=== PATIENT | female | born 1940 | race Caucasian/White ===

== ENCOUNTER → 2018-03-25 | Outpatient (CLI) | payer MEDICARE, OTHER | END | disposition home or self-care (01) | LOC: CARD 09:16 | PROVIDERS: ATTEND Registered Nurse | DX: R94.01 Abnormal electroencephalogram [EEG] (principal); R41.3 Other amnesia; R41.0 Disorientation, unspecified | CPT/HCPCS: 95819 ==

== ENCOUNTER 2018-12-25 08:44 | Emergency (ER) | payer MEDICARE, OTHER ==
[~2018-12-25] VITALS: Ht 157.5 cm; Wt 51.5 kg
[2018-12-25 10:16] LABS: BASOPHILS # (AUTO) 0.02 x10^3/uL (0-0.1); BASOPHILS % (AUTO) 0 % (0-1); EOSINOPHILS % (AUTO) 0 % (1-7); LYMPHOCYTES # (AUTO) 0.91 x10^3/uL (1-3.4); LYMPHOCYTES % (AUTO) 13 % (22-44); MD NO; MEAN CORPUSCULAR HEMOGLOBIN 30.7 pg (27.0-34.8); MEAN CORPUSCULAR HGB CONC 32.8 g/dL (32.4-35.8); MEAN CORPUSCULAR VOLUME 93.6 fL (80-100); MONOCYTES # (AUTO) 1.15 x10^3/uL (0.2-0.8); MONOCYTES % (AUTO) 16 % (2-9); NEUTROPHILS # (AUTO) 4.91 x10^3/uL (1.8-6.8); NEUTROPHILS % (AUTO) 70 % (42-75); PLATELET COUNT 216 x10^3/uL (130-400); RED CELL DISTRIBUTION WIDTH 12.7 % (9.6-15.2)
[2018-12-25 10:27] LABS: ALANINE AMINOTRANSFERASE 23 U/L (12-78); ALBUMIN 3.6 g/dL (3.4-5.0); ANION GAP 9 mmol/L (5-15); CALCIUM 9.1 mg/dL (8.5-10.1); CHLORIDE 98 mmol/L (98-107); CREATININE 1.07 mg/dL (0.55-1.02)
[2018-12-25 10:30] LABS: ALKALINE PHOSPHATASE 82 U/L (45-117); BILIRUBIN,TOTAL 0.8 mg/dL (0.2-1.0); TOTAL PROTEIN 7.9 g/dL (6.4-8.2)
[2018-12-25 10:58] LABS: MICROSCOPIC NOT IND
[2018-12-25] MEDS ORDERED: SODIUM CHLORIDE FLUSH 10ML SYR IVF ONE (11:00)
[2018-12-25 11:12] LABS: CULTURE INDICATED? NO
[2018-12-25 11:18] VITALS: BP 125/72
== END 2018-12-25 12:33 | disposition home or self-care (01) ==
LOC: ED 11:43
DX: B02.33 Zoster keratitis (principal); E86.0 Dehydration
CPT/HCPCS: 36415; 71045; 80053; 81003; 83605; 85025; 93005; 99284